=== PATIENT | female | born 1990 | race Caucasian/White ===

== ENCOUNTER 2017-03-24 15:36 | Emergency (ER) | payer SELFPAY ==
[2017-03-24 16:08] LABS: Bilirubin Negative (Negative); Blood, Urine Moderate (Negative); Glucose, Urine (Dipstick) Negative (Negative); Ketone, Urine Negative (Negative); Nitrite Negative (Negative); Protein, Urine (Dipstick) Negative (Neg-Trace); Urobilinogen 0.2 mg/dL (0.2-1.0)
[2017-03-24 16:10] LABS: Bacteria/HPF None Seen HPF (None Seen); Hyaline Casts/LPF 0-3 HYALINE CAST LPF (0-3 Hyaline); RBC/HPF 21-50 HPF (0-3); Squamous Epithelial 0-3 HPF (0-3); WBC/HPF 0-3 HPF (0-3)
[2017-03-24 16:21] LABS: #Basophils 0.1 thou/uL (0.0-0.2); #Lymphocytes 2.3 thou/uL (1.20-3.40); #Monocytes 0.4 thou/uL (0.11-0.59); #Neutrophils 5.6 thou/uL (1.40-6.50); %Basophils 0.8 % (0.0-1.0); %Eosinophils 0.4 % (0.0-10.0); %Monocytes 4.6 % (0.0-10.0); Hematocrit 43.7 % (36.0-47.0); Mean Platelet Volume 8.8 fL (7.4-10.4); White Blood Cell (WBC) Count 8.4 thou/uL (4.8-10.8)
[2017-03-24 16:39] LABS: ALT (SGPT) 18 U/L (8-55); AST (SGOT) 24 U/L (5-34); Alkaline Phosphatase 106 U/L (40-150); Anion Gap 15 mmol/L (10-20); BUN (Urea Nitrogen) 6 mg/dL (7.0-18.7); Bilirubin, Total 0.5 mg/dL (0.2-1.2); Calc. Creatinine Clearance 0 mL/min (70-130); Carbon Dioxide 27 mmol/L (22-29); Chloride 101 mmol/L (98-107); Estimated GFR-MDRD Greater than 90; Globulin 3.1 g/dL (2.4-3.5); Protein, Total 7.9 g/dL (6.0-8.3)
[2017-03-24] MEDS ORDERED: Ketorolac Tromethamine 30 MG/ML VIAL ONE (17:23)
[2017-03-24] MEDS ORDERED: Ondansetron HCl/PF 4 MG/2 ML Vial ONE (17:23)
[2017-03-24] MEDS ORDERED: Morphine 4 MG/ML VIAL ONE (17:23)
--- NOTE | 2017-03-24 18:06 | ULT ---
RENAL ULTRASOUND: History: Right flank pain. FINDINGS: Right kidney measures approximately 11.5 cm length. No evidence of hydronephrosis. There are echogeni c foci seen in the collecting structures or both kidneys which may represent renal calculi. Bladder i s mildly distended and appears unremarkable. Incidentally noted is echogenic gallstone in the gallbladder. IMPRESSION: 1. The echogenic foci seen in the upper collecting structures of both kidney which may represent jj l calculi. No evidence of hydronephrosis. 2. Cholelithiasis is incidentally noted. POS: JYOTHI
== END 2017-03-24 19:00 | disposition home or self-care (01) ==
LOC: ERS 15:36
DX: N20.0 Calculus of kidney (principal); K80.80 Other cholelithiasis without obstruction; F41.9 Anxiety disorder, unspecified; F17.210 Nicotine dependence, cigarettes, uncomplicated; Z71.6 Tobacco abuse counseling; Z79.899 Other long term (current) drug therapy
CPT/HCPCS: 36415; 76770; 80053; 81003; 81015; 81025; 85025; 96361; 96374; 96375; 99406; J1885; J2270; J2405

== ENCOUNTER 2017-04-02 09:31 | Outpatient (CLI) | payer OTHER ==
[2017-04-02 12:04] LABS: #Basophils 0.1 thou/uL (0.0-0.2); #Eosinphils 0.2 thou/uL (0.0-0.7); #Lymphocytes 2.5 thou/uL (1.20-3.40); #Monocytes 0.5 thou/uL (0.11-0.59); #Neutrophils 3.8 thou/uL (1.40-6.50); %Basophils 1.4 % (0.0-1.0); %Eosinophils 2.5 % (0.0-10.0); %Lymphocytes 35.4 % (21.0-51.0); %Monocytes 7.1 % (0.0-10.0); Hematocrit 44.9 % (36.0-47.0); Mean Platelet Volume 9.2 fL (7.4-10.4); Red Blood Cell (RBC) Count 4.54 mill/uL (4.20-5.40); White Blood Cell (WBC) Count 7.1 thou/uL (4.8-10.8)
[2017-04-02 12:29] LABS: ALT (SGPT) 15 U/L (8-55); AST (SGOT) 19 U/L (5-34); Alkaline Phosphatase 88 U/L (40-150); Anion Gap 11 mmol/L (10-20); BUN (Urea Nitrogen) 12 mg/dL (7.0-18.7); Bilirubin, Direct 0.4 mg/dL (0.1-0.3); Calc. Creatinine Clearance 0 mL/min (70-130); Calcium 10.2 mg/dL (7.8-10.44); Carbon Dioxide 30 mmol/L (22-29); Chloride 102 mmol/L (98-107); Estimated GFR-MDRD Greater than 90; Protein, Total 7.4 g/dL (6.0-8.3)
== END 2017-04-02 09:32 | disposition home or self-care (01) ==
LOC: LABBT 09:31
PROVIDERS: ATTEND Surgery
DX: Z01.812 Encounter for preprocedural laboratory examination (principal); K80.20 Calculus of gallbladder without cholecystitis without obstruction
CPT/HCPCS: 80048; 80076; 85025

== ENCOUNTER 2017-04-05 07:43 | Day surgery (SDC) | payer SELFPAY, OTHER ==
[2017-04-05 08:09] LABS: #Basophils 0.1 thou/uL (0.0-0.2); #Eosinphils 0.2 thou/uL (0.0-0.7); #Lymphocytes 1.9 thou/uL (1.20-3.40); #Monocytes 0.4 thou/uL (0.11-0.59); #Neutrophils 3.4 thou/uL (1.40-6.50); %Basophils 1.2 % (0.0-1.0); %Eosinophils 2.8 % (0.0-10.0); %Lymphocytes 32.6 % (21.0-51.0); %Monocytes 6.1 % (0.0-10.0); Hematocrit 41.6 % (36.0-47.0); Mean Platelet Volume 9.4 fL (7.4-10.4); Red Blood Cell (RBC) Count 4.27 mill/uL (4.20-5.40); White Blood Cell (WBC) Count 5.9 thou/uL (4.8-10.8)
[2017-04-05 08:30] LABS: ALT (SGPT) 12 U/L (8-55); AST (SGOT) 16 U/L (5-34); Alkaline Phosphatase 69 U/L (40-150); Anion Gap 9 mmol/L (10-20); BUN (Urea Nitrogen) 10 mg/dL (7.0-18.7); Bilirubin, Total 0.5 mg/dL (0.2-1.2); Calc. Creatinine Clearance 0 mL/min (70-130); Calcium 9.3 mg/dL (7.8-10.44); Carbon Dioxide 28 mmol/L (22-29); Chloride 104 mmol/L (98-107); Estimated GFR-MDRD Greater than 90; Globulin 2.5 g/dL (2.4-3.5); Protein, Total 6.6 g/dL (6.0-8.3)
[2017-04-05] MEDS ORDERED: Midazolam HCl 2 mg/2 ml Vial ONE (08:50)
[2017-04-05] MEDS ORDERED: Bupivacaine/Epinephrine 0.25% 30 ML VIAL ONE (09:10)
[2017-04-05] MEDS ORDERED: cefOXitin 2 GM, Syringe 1 ML in Sterile Water 10 ML SLOW IVP SCH (09:30)
[2017-04-05] MEDS ORDERED: Fentanyl 100 MCG/2 ML VIAL ONE ×3 (09:44→11:35)
[2017-04-05] MEDS ORDERED: Meperidine HCl/PF 25 MG/ML VIAL ONE (11:28)
[2017-04-05] MEDS ORDERED: Morphine 4 MG/ML VIAL ONE (11:56)
[2017-04-05] MEDS ORDERED: HYDROcodone/Acetaminophen 5/325 mg Tablet ONE (12:33)
--- NOTE | 2017-04-05 14:02 | OP ---
DATE OF PROCEDURE: 04/05/2017 PREOPERATIVE DIAGNOSIS: Acute cholecystitis. POSTOPERATIVE DIAGNOSIS: Acute cholecystitis. PROCEDURE: Laparoscopic cholecystectomy. SURGEON: Juancarlos Arroyo M.D. ANESTHESIA: General. ESTIMATED BLOOD LOSS: Minimal. COMPLICATIONS: None. SPECIMEN: Gallbladder. FINDINGS: Chronic cholecystitis. PROCEDURE IN DETAIL: The patient was taken to the Operating Room and laid supine on the Operating Ro om table. After general anesthetic was obtained, the abdomen was prepped and draped in a sterile fas hion. A curved incision was made below the umbilicus. Cautery was used to dissect down to the umbili saulo fascia. Umbilical fascia was incised and held up using a Jordyn. The abdominal cavity was enter ed using a Bailey clamp. Holding stitch of Vicryl was placed on each side of the fascia. Lozano troc ar was placed. High-flow pneumoperitoneum was obtained. An upper midline 5-mm port and two right up per quadrant 5-mm ports were placed under direct camera visualization. The gallbladder was retracted from the gallbladder fossa. The peritoneum of the gallbladder was opened anteriorly and posteriorly . The critical view triangle was seen showing only the cystic duct and cystic artery branching from medial to lateral. There were no other branching structures. Two clips were placed proximally on th e cystic duct and one laterally. It was cut using laparoscopic scissors. The cystic artery was take n in the same way. Electrocautery was then used to dissect the gallbladder out of the gallbladder fo ssa. The gallbladder was placed in an Endo catch bag and brought out through the Lozano. There was no bleeding or bile in the liver bed. The cystic duct stump and cystic artery stump were intact with out evidence of extravasation or bleeding. All port sites were infiltrated using local anesthesia. All ports were removed under camera visualization. Pneumoperitoneum was let down. The Vicryl was us ed to close the fascial defect below the umbilicus. All incisions were irrigated and closed using 4- 0 Monocryl and DermaBond. The patient was en route to Recovery in stable condition. All instrument counts, needle counts and lap counts were correct.
[2017-04-05] MEDS ORDERED: Ondansetron HCl/PF 4 MG/2 ML Vial ONE (15:27)
[2017-04-05] MEDS ORDERED: Glycopyrrolate 0.2 MG/ML 5 ML SYRINGE ONE (15:27)
[2017-04-05] MEDS ORDERED: Lidocaine 1% PF 5 ML VIAL ONE (15:27)
[2017-04-05] MEDS ORDERED: Dexamethasone 20 MG/5 ML VIAL ONE (15:27)
[2017-04-05] MEDS ORDERED: Propofol 200 MG/20 ML VIAL ONE (15:27)
== END 2017-04-06 12:51 | disposition home or self-care (01) ==
LOC: ERS 07:43 → SDC 08:29
PROVIDERS: ATTEND Surgery
PROC: 0FT44ZZ Resection of Gallbladder, Percutaneous Endoscopic Approach (ICD-10-PCS; principal; 2017-04-06)
DX: K80.10 Calculus of gallbladder with chronic cholecystitis without obstruction (principal); Z88.6 Allergy status to analgesic agent
CPT/HCPCS: 80053; 84703; 85025; 88304; 96374; 99285; A4216; J0694; J1100; J2001; J2175; J2250; J2270; J2405; J2704; J3010